=== PATIENT | male | born 1985 | race Caucasian/White ===

== ENCOUNTER 2017-01-22 22:42 | Emergency (ER) | payer OTHER ==
--- NOTE | 2017-01-22 23:49 | DIAGNOSTIC IMAGING REPORT ---
PROCEDURE: XR CHEST 1 VIEW INDICATION: Chest pain, initial encounter TECHNIQUE: Portable AP view 11:29 p.m. COMPARISON: Chest x-ray 11/27/2008 FINDINGS: Lungs are clear. Heart and mediastinum are normal. Thorax is normal. No significant interval change. IMPRESSION: 1. Negative chest.
--- NOTE | 2017-01-23 00:53 | ED ORDER SUMMARY ---
..... Patient: MOISES SALES OrderSheet [facility] VisitID: [id number] [address] [place] [address] 31y, M Registration Date/Time: 01/22/2017 ORDER SHEET Weight: 115.6 kg Allergies: No Known Drug Allergy GENERAL ORDERS: Administrative Office Specialist (Continuous) (CP) (22:53 01/22/2017 Leslie Gill) (Ack 22:55 ALawrence ER Tech1) (23:02 ALawrence ER Tech1) EKG - ER Stat (22:53 01/22/2017 Leslie Gill) (Ack 22:55 ALawrence ER Tech1) (23:02 ALawrence ER Tech1) Pulse oximeter (22:53 01/22/2017 Leslie Gill) (Ack 22:55 ALawrence ER Tech1) (23:02 ALawrence ER Tech1) Chest 1V Urgent (23:07 01/22/2017 Leslie Gill) (Ack 23:12 ALawrence ER Tech1) (23:46 MCampbell) Administrative Office Specialist (Continuous) (CP) (23:07 01/22/2017 Leslie Gill) (Ack 23:08 DDavis R.N.) (23:08 DDavis R.N.) (Cancelled: Duplicate Order23:53 Leslie Gill) CBC w Diff Urgent (23:07 01/22/2017 Leslie Gill) (Ack 23:08 DDavis R.N.) (23:08 DDavis R.N.) CMP Urgent (23:07 01/22/2017 Leslie Gill) (Ack 23:08 DDavis R.N.) (23:08 DDavis R.N.) PT with INR Urgent (23:07 01/22/2017 Leslie Gill) (Ack 23:08 DDavis R.N.) (23:08 DDavis R.N.) Troponin-I Urgent (23:07 01/22/2017 Leslie Gill) (Ack 23:08 DDavis R.N.) (23:08 DDavis R.N.) Pulse oximeter (23:07 01/22/2017 Leslie Gill) (Ack 23:08 DDavis R.N.) (23:08 ETHANavis R.N.) (Cancelled: Duplicate Order23:53 Leslie Gill) Urine Drug Screen Urgent (23:53 01/22/2017 Leslie Gill) (Ack 23:55 ALawrence ER Tech1) (0:16 Lingelli R.N.) MEDICATION ORDERS: IV FLUIDS: IV Saline Lock (23:07 01/22/2017 Leslie Gill) (23:11 Blakes R.N.) ORDER SHEET NOTES: [Electronically signed by Lauri Moss R.N. (01:06 01/23/2017)] [Electronically signed by Uriel Adams Dr. (05:02 01/31/2017)] [Electronically locked/signed by Lauri Moss R.N. (01:06 01/23/2017)]
--- NOTE | 2017-01-23 00:53 | ED CLINICAL REPORT ---
Clinical Report - Physicians/Mid Levels [facility] [address] [place] [address] 01/22/2017 22:45 Patient: MOISES SALES Time Seen: 2253. Arrived- By private vehicle. Historian- patient. HISTORY OF PRESENT ILLNESS Chief Complaint: CHEST PAIN. At its maximum, severity described as severe. When seen in the E.D., it was gone. Modifying factors- (does not know what else makes it worse or better). This started yesterday, is still present but is better now and is now gone. It was abrupt in onset and has been constant. Onset during smoking marijuana. It is described as sharp and it is described as located in the central chest area. No radiation. No nausea, vomiting, difficulty breathing or diaphoresis. (occured while smoking marijuana. lasted 15 minutes then went away. No hemoptysis, trauma, or leg swelling. No hx of DVT or PE.). No additional chest pain. Similar symptoms previously: Several times (while smoking marijuana). Recent medical care: The patient was seen recently by a health care provider. REVIEW OF SYSTEMS No fever, chills or pedal edema. All systems otherwise negative, except as recorded above. PAST HISTORY Denies the following risk factors for DVT/PE - history of DVT and pulmonary embolism, recent surgery, recent MD and congestive heart failure. Denies the following risk factors for DVT/PE - cancer, clotting disorder, estrogens, obesity and immobility. Denies the following risk factors for DVT/PE - advanced in age and vena cava filter. SOCIAL HISTORY Never smoker. History of drug use: marijuana. No alcohol use. No recent travel. Is a local resident. FAMILY HISTORY No history of heart disease. No family history of premature onset heart disease. ADDITIONAL NOTES The nursing notes have been reviewed. PHYSICAL EXAM Vital Signs: 01/22/2017 22:50 BP: 166/102. HR: 110. RR: 16. O2 saturation: 100%. Temp: 99.3 F. Pain level now: 2/10. Blood pressure normal. Oxygen saturation normal. Appearance: Alert. Oriented X3. No acute distress. Eyes: Pupils equal, round and reactive to light. Eyes normal inspection. ENT: Ears normal. Nose normal. Pharynx normal. Neck: Normal inspection. Neck supple. CVS: Normal heart rate and rhythm. Heart sounds normal. Pulses normal. No decreased pulses. Respiratory: No respiratory distress. Breath sounds normal. Chest nontender. Abdomen: Soft and nontender. Bowel sounds normal. No organomegaly. No mass. Femoral pulses equal. Back: Normal external inspection. Skin: Skin warm and dry. Normal skin color. No rash. Normal skin turgor. Extremities: Extremities exhibit normal ROM. No lower extremity edema. Neuro: Oriented X 3. No motor deficit. No sensory deficit. LABS, X-RAYS, AND EKG EKG: Normal sinus rhythm. Normal P waves. Normal MARK. Normal QRS complex. Normal axis. Normal ST and T waves, QT and QTc. The study has been interpreted contemporaneously. The study has been independently viewed by me. The EKG appears to be a good tracing. Chest X-ray: (PROCEDURE: XR CHEST 1 VIEW INDICATION: Chest pain, initial encounter TECHNIQUE: Portable AP view 11:29 p.m. COMPARISON: Chest x-ray 11/27/2008 FINDINGS: Lungs are clear. Heart and mediastinum are normal. Thorax is normal. No significant interval change. IMPRESSION: 1. Negative chest.). Laboratory Tests: CBC w Diff: (JUAN DANIEL: 01/22/2017 22:50) ( MsgRcvd 01/22/2017 23:13) Final results Test Result Flag Units (Reference) WHITE BLOOD COUNT 9.2 K/uL (4.5-11.5) RED BLOOD COUNT 5.15 M/uL (4.50-5.90) HEMOGLOBIN 15.7 gm/dL (13.5-17.5) HEMATOCRIT 46.1 % (41.0-53.0) MEAN CELL VOLUME 90 fL (80-100) MEAN CORPUSCULAR HGB 30 pg (26-34) MEAN CORPUSCULAR HGB CONC 34 g/dL (31-37) RED CELL DISTRIBUTION WIDTH 12.4 % (11.6-14.8) PLATELET COUNT 282 K/uL (150-400) NEUTROPHIL % 41.1 L % (50-75) LYMPH % 48.2 H % (25-40) MONO % 9.5 % (3-14) EOSINOPHIL % 0.9 % (0-4) BASOPHIL % 0.3 % (0-2) PT with INR: (JUAN DANIEL: 01/22/2017 22:50) ( [facility] 01/22/2017 23:26) Final results Test Result Flag Units (Reference) INR 0.9 (0.8-1.2) Low Intensity Therapy: INR 1.5-2.0 PT range 18.5-23.1Mod.Intensity Therapy: INR 2.0-3.0 PT range 23.1-31.5High Intensity Therapy: INR 2.5-3.5 PT range 27.4-35.5High Intensity Therapy 2: INR 3.0-4.0 PT range 31.5-39.3 Urine Drug Screen: (JUAN DANIEL: 01/22/2017 00:05) ( [facility] 01/23/2017 00:40) Final results Test Result Flag Units (Reference) AMPHETAMINE/METHAMPHETAMINE NEGATIVE (NEGATIVE) BARBITURATE NEGATIVE (NEGATIVE) BENZODIAZEPINE NEGATIVE (NEGATIVE) CANNABINOID POSITIVE H (NEGATIVE) COCAINE NEGATIVE (NEGATIVE) ECSTASY NEGATIVE (NEGATIVE) METHADONE NEGATIVE (NEGATIVE) OPIATE NEGATIVE (NEGATIVE) The urine drug screen is a qualitative screening test fordrug overdose and abuse. All screen results should beconsidered as presumptive.Drugs screened for are as follows:BenzodiazepinesCocaineAmphetamines/MetamphetaminesTHC (Tetrahydrocannabinol)OpiatesBarbituratesEcstasyMethadonePositive results are unconfirmed. For confirmation, notifythe lab for the specimen to be sent to the reference lab.All confirmations must be performed by a differentmethodology.The ingestion of natural herbal and plant productscontaining Ephedra/Ephedra metabolites can produce in urineone or more substances capable of cross reacting withamphetamine/methamphetamine immunoassays. These testsprovide a preliminary result only. A more specificalternative chemical method must be used to obtain aconfirmed analytical result. CMP: (JUAN DANIEL: 01/22/2017 22:50) ( [facility] 01/22/2017 23:33) Final results Test Result Flag Units (Reference) GLUCOSE 107 mg/dL (70-110) BUN 23 H mg/dL (7-18) CREATININE 1.0 mg/dL (0.6-1.3) Estimated GFR >60 mL/min Estimated GFR- >60 mL/min Note: Persistent reduction over 3 months in eGFR<60 mL/min/1.73 m2 defines CKD. Patients with eGFR values>=60 mL/min/1.73 m2 may also have CKD if evidence ofpersistent proteinuria. Additional information may be foundat www.kidney.org. SODIUM 141 mmol/L (136-145) POTASSIUM 3.8 mmol/L (3.5-5.1) CHLORIDE 105 mmol/L (98-107) CARBON DIOXIDE 26 mmol/L (21-32) CALCIUM 9.1 mg/dL (8.5-10.1) TOTAL PROTEIN 8.1 g/dL (6.4-8.2) ALBUMIN 4.4 g/dL (3.3-5.0) BILIRUBIN, TOTAL 0.4 mg/dL (0.0-1.0) ALKALINE PHOSPHATASE 94 U/L (46-116) AST (SGOT) 30 U/L (15-37) ALT (SGPT) 65 U/L (12-78) TROPONIN I <0.05 L ng/mL (0.00-1.5) TROPONIN REFERENCE RANGE:<0.1 NEGATIVE0.1-1.5 INDETERMINANT>1.5 POSITIVE . PROGRESS AND PROCEDURES Course of Care: the patient is a pleasant 31-year-old male presenting for evaluation of chest pain. The patient is reporting somewhat atypical symptoms for chest pain. Patient does not have any significant risk factors for pulmonary embolism. Patient is a low risk on the well's criteria. Do not feel further workup for pulmonary embolism is warranted at this time. Patient will be provided for the chest pain in regards to acute myocardial infarction. Patient be evaluated with chest x-ray EKG and laboratory studies. Because of time course of chest pain, troponin 1 will be ordered. Do not feel delta troponin is needed at this time given patient's time course. Patient is resting in bed and in no acute distress. Patient is agreeable to treatment and plan. Patient's workup is noted to be negative. Chest x-ray, EKG, laboratory studies are unremarkable. No evidence of acute myocardial infarction at this time. Symptoms are alsoatypical and not consistent with acute myocardial infarction or coronary artery disease. Did have discussion patient in regards to chest pain and other potential causes for it. Also instructed patient to follow up with his doctor in regards to continued pain and further management of his symptoms. Did not fill patient is being admitted to the hospital or require further emergency department workup/evaluation. Also discussed the patient recreational drug use and abstaining from substances that could potentially be harmful. Patient is agreeable to the treatment and plan. Discussed the patient is workup, diagnosis, home care, follow-up, and return precautions. All questions have been answered. The patient expressed understanding of these instructions and was agreeable to them. Disposition: Discharged. Condition: good. CLINICAL IMPRESSION 01/22/2017 23:03 BP: 164/83. HR: 94. RR: 16. O2 saturation: 98%. 01/22/2017 22:50 BP: 166/102. HR: 110. RR: 16. O2 saturation: 100%. Temp: 99.3 F. Pain level now: 2/10. Hypertensive. Oxygen saturation normal. Atypical chest pain (acute substernal). INSTRUCTIONS Warnings: GENERAL WARNINGS: Return or contact your physician immediately if your condition worsens or changes unexpectedly, if not improving as expected, or if other problems arise. SPECIFICALLY, return if you develop chest, neck, jaw, shoulder, arm, or back pain, difficulty breathing, a fluttering sensation in your chest, lightheadedness, fainting, excessive fatigue, or sudden sweating. Your Current Medications: CONTINUE TAKING THE FOLLOWING MEDICATIONS: Suboxone Sublingual : Film 8-2 mg, daily. Follow-up: Return to the emergency department as needed. Follow up with your doctor in three days. Reason for referral: recheck today's concerns. Summary of care provided to patient via paper. Screening today revealed the patient's blood pressure to be in the normal range. The patient should follow up with a primary care provider for blood pressure management. Understanding of the discharge instructions verbalized by patient. (Electronically signed by Uriel Adams Dr. 01/31/2017 5:02)
--- NOTE | 2017-01-23 00:53 | ED ORDER SUMMARY ---
..... Patient: MOISES SALES OrderSheet [facility] VisitID: [id number] [address] [place] [address] 31y, M Registration Date/Time: 01/22/2017 ORDER SHEET Weight: 115.6 kg Allergies: No Known Drug Allergy GENERAL ORDERS: Agronomy Location Manager (Continuous) (CP) (22:53 01/22/2017 Leslie Gill) (Ack 22:55 ALawrence ER Tech1) (23:02 ALawrence ER Tech1) EKG - ER Stat (22:53 01/22/2017 Leslie Gill) (Ack 22:55 ALawrence ER Tech1) (23:02 ALawrence ER Tech1) Pulse oximeter (22:53 01/22/2017 Leslie Gill) (Ack 22:55 ALawrence ER Tech1) (23:02 ALawrence ER Tech1) Chest 1V Urgent (23:07 01/22/2017 Leslie Gill) (Ack 23:12 ALawrence ER Tech1) (23:46 MCampbell) Agronomy Location Manager (Continuous) (CP) (23:07 01/22/2017 Leslie Gill) (Ack 23:08 DDavis R.N.) (23:08 DDavis R.N.) (Cancelled: Duplicate Order23:53 Leslie Gill) CBC w Diff Urgent (23:07 01/22/2017 Leslie Gill) (Ack 23:08 DDavis R.N.) (23:08 DDavis R.N.) CMP Urgent (23:07 01/22/2017 Leslie Gill) (Ack 23:08 DDavis R.N.) (23:08 DDavis R.N.) PT with INR Urgent (23:07 01/22/2017 Leslie Gill) (Ack 23:08 DDavis R.N.) (23:08 DDavis R.N.) Troponin-I Urgent (23:07 01/22/2017 Leslie Gill) (Ack 23:08 DDavis R.N.) (23:08 DDavis R.N.) Pulse oximeter (23:07 01/22/2017 Leslie Gill) (Ack 23:08 DDavis R.N.) (23:08 ETHANavis R.N.) (Cancelled: Duplicate Order23:53 Leslie Gill) Urine Drug Screen Urgent (23:53 01/22/2017 Leslie Gill) (Ack 23:55 ALawrence ER Tech1) (0:16 Lingelli R.N.) MEDICATION ORDERS: IV FLUIDS: IV Saline Lock (23:07 01/22/2017 Leslie Gill) (23:11 Blakes R.N.) ORDER SHEET NOTES: [Electronically signed by Lauri Moss R.N. (01:06 01/23/2017)] [Electronically signed by Uriel Adams Dr. (05:02 01/31/2017)] [Electronically locked/signed by Lauri Moss R.N. (01:06 01/23/2017)]
--- NOTE | 2017-01-23 00:53 | ED NURSING NOTES ---
Clinical Report - Nurses [facility] [address] [place] [address] 01/22/2017 22:45 [id number] Triage time 22:53 Jan 22 2017. Acuity: LEVEL 3. Chief Complaint: CHEST PAIN. Alert. CHANA COMA SCORE: [place] Coma Scale: 15- eyes open spontaneously (4); best verbal response- oriented x 4 (5); best motor response- obeys commands (6). --23:09 Jhon Michelle R.N. 22:50 01/22/17. BP: 166/102. HR: 110. RR: 16. O2 saturation: 100% on room air. Temp: 99.3 F. Pain level now: 12/19. --23:09 Jhon Michelle R.N. Weight: 115.6 kg. Height/Length: 72 inches Per Patient. BMI: 34.6. --22:52 Jhon Michelle R.N. Medications Suboxone Sublingual (Film 8-2 mg), daily. --22:52 Jhon Michelle R.N. The following entry was struck and corrected by Jhon Michelle R.N., 22:53 (01/22/17) Reason for correction - other(correction). <<STRICKEN ENTRY-- Suboxone Sublingual. --22:52 Jhon Michelle R.N. --END STRIKE>>. Medication/allergy information source: the patient. --23:09 Jhon Michelle R.N. Allergies No Known Drug Allergy. --22:52 Jhon Michelle R.N. History Historian: patient. Primary physician (none). ( Chest Pain located upper sternum mostly on the (L). He states that this pain has bothered him for the last 2 months, got worse last night and he decided to come to the Hospital and have it checked out tonight.). This started just prior to arrival. Onset. (about 2 months ago). He has had difficulty breathing (intermittently). He has had nausea. Treatment STONE CUTTER: None. PAST MEDICAL HX: Hypertension. SOCIAL HX: Former smoker, end date 2009. History of occasional drug use: marijuana. No alcohol use. No infectious disease exposure. ABUSE ASSESSMENT: No report of abuse. FALL RISK ASSESSMENT: Fall risk assessment completed. No fall risk identified. NUTRITIONAL RISK ASSESSMENT: The nutritional risk assessment revealed no deficiencies. FUNCTIONAL ASSESSMENT: Functional assessment: no impairments noted. LEARNING NEEDS ASSESSMENT: The learning needs assessment revealed no barriers. SKIN INTEGRITY ASSESSMENT: Skin integrity risk assessment completed. No skin integrity risk identified. --23:09 Jhon Michelle R.N. ADDITIONAL SURGERIES: Sleep Apnea recostruction. --23:01 Jhon Michelle R.N. Interventions ID band on patient. To treatment room. --23:09 Jhon Michelle R.N. PHYSICAL ASSESSMENT Ambulatory to room. GENERAL / NEURO / PSYCH: Alert. Oriented X 4. HEENT: Mucous membranes are pink. RESPIRATORY: Respirations not labored. Breath sounds within normal limits. CVS: Normal sinus rhythm noted. Cardiac rhythm: normal sinus rhythm. Heart sounds within normal limits. Capillary refill less than 2 seconds. GI / : Abdomen soft. EXTREMITIES: No lower extremity edema. SKIN: Skin is warm and dry. Normal skin turgor. --23:09 Jhon Michelle R.N. ( pt states having intermittent chest pain for "2 months." He states having smoked "pot" last night, and that the chest pain occurred after that.). RESPIRATORY: Respirations not labored. Breath sounds within normal limits. --23:13 Lauri Moss R.N. ( patient on monitor--NSR). CVS: Normal sinus rhythm noted. --23:14 Lauri Moss R.N. NURSING PROGRESS NOTES 23:03 01/22/17. BP: 164/83. HR: 94. RR: 16. O2 saturation: 98%. --23:04 Jhon Michelle R.N. compliance monitor and pulse oximeter placed on patient; surveillance system monitor- Lead II and V1; monitor alarms on. Patient gowned. Patient identifiers checked. Call light placed in reach. Side rails up. Bed placed in lowest position. Brakes of bed on. Patient ready for evaluation- chart flagged and ED physician notified. --23:04 Jhon Michelle R.N. 23:01 01/22/2017 Site #1 started via IV in the left antecubital space with an 20g angiocath; two attempts. Blood drawn: rainbow set. Labeled in the presence of the patient and sent to the lab. Saline lock flushed with saline. --23:11 Lauri Moss R.N. ( Portable x ray in room.). --23:43 Jayro Alejandra R.N. DISPOSITION / DISCHARGE Cardiac rhythm: normal sinus rhythm. Condition at departure: stable. Learning barriers present. Discharge instructions provided and reviewed with the patient and spouse. Reviewed warnings. Treatments reviewed. Reviewed referrals for followup. Patient verbalized understanding. Written instructions provided in Slovenian. The patient was discharged home and accompanied by assistant plant manager. He left the Emergency Department ambulatory and via private vehicle. Internal Control Consultant driving. FALL RISK ASSESSMENT: Fall risk assessment completed. No fall risk identified. --01:03 Lauri Moss R.N. 01:01 01/23/17. BP: 128/71. HR: 77 (regular and normal rate). RR: 23 (regular and unlabored). O2 saturation: 95% on room air. Winters-Arzate pain scale: 0/10. --01:03 Lauri Moss R.N. 01:00 01/23/2017 Site #1 removed upon discharge. Manual pressure and bandaid applied. --01:05 Lauri Moss R.N. Locked/Released at 01/23/2017 1:06 by Lauri Moss R.N.
--- NOTE | 2017-01-23 00:53 | ED NURSING NOTES ---
Clinical Report - Nurses [facility] [address] [place] [address] 01/22/2017 22:45 [facility]ISES SALES [id number] TRI[facility] Triage time 22:53 Jan 22 2017. Acuity: LEVEL 3. Chief Complaint: CHEST PAIN. Alert. CHANA COMA SCORE: [place] Coma Scale: 15- eyes open spontaneously (4); best verbal response- oriented x 4 (5); best motor response- obeys commands (6). --23:09 Jhon Michelle R.N. 22:50 01/22/17. BP: 166/102. HR: 110. RR: 16. O2 saturation: 100% on room air. Temp: 99.3 F. Pain level now: 12/19. --23:09 Jhon Michelle R.N. Weight: 115.6 kg. Height/Length: 72 inches Per Patient. BMI: 34.6. --22:52 Jhon Michelle R.N. Medications Suboxone Sublingual (Film 8-2 mg), daily. --22:52 Jhon Michelle R.N. The following entry was struck and corrected by Jhon Michelle R.N., 22:53 (01/22/17) Reason for correction - other(correction). <<STRICKEN ENTRY-- Suboxone Sublingual. --22:52 Jhon Michelle R.N. --END STRIKE>>. Medication/allergy information source: the patient. --23:09 Jhon Michelle R.N. Allergies No Known Drug Allergy. --22:52 Jhon Michelle R.N. History Historian: patient. Primary physician (none). ( Chest Pain located upper sternum mostly on the (L). He states that this pain has bothered him for the last 2 months, got worse last night and he decided to come to the Hospital and have it checked out tonight.). This started just prior to arrival. Onset. (about 2 months ago). He has had difficulty breathing (intermittently). He has had nausea. Treatment FACILITY MAINTENANCE MANAGER: None. PAST MEDICAL HX: Hypertension. SOCIAL HX: Former smoker, end date 2009. History of occasional drug use: marijuana. No alcohol use. No infectious disease exposure. ABUSE ASSESSMENT: No report of abuse. FALL RISK ASSESSMENT: Fall risk assessment completed. No fall risk identified. NUTRITIONAL RISK ASSESSMENT: The nutritional risk assessment revealed no deficiencies. FUNCTIONAL ASSESSMENT: Functional assessment: no impairments noted. LEARNING NEEDS ASSESSMENT: The learning needs assessment revealed no barriers. SKIN INTEGRITY ASSESSMENT: Skin integrity risk assessment completed. No skin integrity risk identified. --23:09 Jhon Michelle R.N. ADDITIONAL SURGERIES: Sleep Apnea recostruction. --23:01 Jhon Michelle R.N. Interventions ID band on patient. To treatment room. --23:09 Jhon Michelle R.N. PHYSICAL ASSESSMENT Ambulatory to room. GENERAL / NEURO / PSYCH: Alert. Oriented X 4. HEENT: Mucous membranes are pink. RESPIRATORY: Respirations not labored. Breath sounds within normal limits. CVS: Normal sinus rhythm noted. Cardiac rhythm: normal sinus rhythm. Heart sounds within normal limits. Capillary refill less than 2 seconds. GI / : Abdomen soft. EXTREMITIES: No lower extremity edema. SKIN: Skin is warm and dry. Normal skin turgor. --23:09 Jhon Michelle R.N. ( pt states having intermittent chest pain for "2 months." He states having smoked "pot" last night, and that the chest pain occurred after that.). RESPIRATORY: Respirations not labored. Breath sounds within normal limits. --23:13 Lauri Moss R.N. ( patient on monitor--NSR). CVS: Normal sinus rhythm noted. --23:14 Lauri Moss R.N. NURSING PROGRESS NOTES 23:03 01/22/17. BP: 164/83. HR: 94. RR: 16. O2 saturation: 98%. --23:04 Jhon Michelle R.N. door captain and pulse oximeter placed on patient; supervisor cutting department- Lead II and V1; monitor alarms on. Patient gowned. Patient identifiers checked. Call light placed in reach. Side rails up. Bed placed in lowest position. Brakes of bed on. Patient ready for evaluation- chart flagged and ED physician notified. --23:04 Jhon Michelle R.N. 23:01 01/22/2017 Site #1 started via IV in the left antecubital space with an 20g angiocath; two attempts. Blood drawn: rainbow set. Labeled in the presence of the patient and sent to the lab. Saline lock flushed with saline. --23:11 Lauri Moss R.N. ( Portable x ray in room.). --23:43 Jayro Alejandra R.N. DISPOSITION / DISCHARGE Cardiac rhythm: normal sinus rhythm. Condition at departure: stable. Learning barriers present. Discharge instructions provided and reviewed with the patient and spouse. Reviewed warnings. Treatments reviewed. Reviewed referrals for followup. Patient verbalized understanding. Written instructions provided in Telugu. The patient was discharged home and accompanied by vehicle assembly inspector. He left the Emergency Department ambulatory and via private vehicle. Mailroom Courier driving. FALL RISK ASSESSMENT: Fall risk assessment completed. No fall risk identified. --01:03 Lauri Moss R.N. 01:01 01/23/17. BP: 128/71. HR: 77 (regular and normal rate). RR: 23 (regular and unlabored). O2 saturation: 95% on room air. Winters-Arzate pain scale: 0/10. --01:03 Lauri Moss R.N. 01:00 01/23/2017 Site #1 removed upon discharge. Manual pressure and bandaid applied. --01:05 Lauri Moss R.N. Locked/Released at 01/23/2017 1:06 by Lauri Moss R.N.
--- NOTE | 2017-01-31 05:02 | ED MAR SUMMARY ---
..... Medication Administration Record [facility] [address] [place], [place] [id number] Patient: MOISES SALES Visit ID: [id number] 31y, M Weight: 115.6 kg Height/Length: 72 in BMI: 34.6 ALLERGIES: No Known Drug Allergy
--- NOTE | 2017-01-31 05:02 | ED MED RECONCILIATION SUMMARY ---
Patient: MOISES SALES Medication Reconciliation Report [facility] VisitID: [id number] [address] [place] [address] 31y, M Registration Date/Time: 01/22/2017 Weight: 115.6 kg Height/Length: 72 in. BMI: 34.6 ALLERGIES: No Known Drug Allergy The patient's Home Medications are listed below: CONTINUE TAKING THE FOLLOWING MEDICATIONS: Suboxone Sublingual (8-2 mg), daily The source(s) of the original Home Medication information: patient The following Medications were given to the patient in the Emergency Department: None. The following Medications were prescribed to the patient: None.
--- NOTE | 2017-01-31 05:02 | ED MED RECONCILIATION SUMMARY ---
Patient: MOISES SALES Medication Reconciliation Report [facility] VisitID: [id number] [address] [place] [address] 31y, M Registration Date/Time: 01/22/2017 Weight: 115.6 kg Height/Length: 72 in. BMI: 34.6 ALLERGIES: No Known Drug Allergy The patient's Home Medications are listed below: CONTINUE TAKING THE FOLLOWING MEDICATIONS: Suboxone Sublingual (8-2 mg), daily The source(s) of the original Home Medication information: patient The following Medications were given to the patient in the Emergency Department: None. The following Medications were prescribed to the patient: None.
--- NOTE | 2017-01-31 05:02 | ED MAR SUMMARY ---
..... Medication Administration Record [facility] [address] [place], [place] [id number] Patient: MOISES SALES Visit ID: [id number] 31y, M Weight: 115.6 kg Height/Length: 72 in BMI: 34.6 ALLERGIES: No Known Drug Allergy
--- NOTE | 2017-01-31 05:02 | ED DISCHARGE INSTRUCTIONS ---
Patient: MOISES SALES General Instructions [facility] VisitID: [id number] [address] [place] [address] 31y, M Registration Date/Time: 01/22/2017 01/22/2017 23:03 BP: 164/83. HR: 94. RR: 16. O2 saturation: 98%. 01/22/2017 22:50 BP: 166/102. HR: 110. RR: 16. O2 saturation: 100%. Temp: 99.3 F. Pain level now: 12/19. Hypertensive. Oxygen saturation normal. Atypical chest pain (acute substernal). INSTRUCTIONS Warnings: GENERAL WARNINGS: Return or contact your physician immediately if your condition worsens or changes unexpectedly, if not improving as expected, or if other problems arise. SPECIFICALLY, return if you develop chest, neck, jaw, shoulder, arm, or back pain, difficulty breathing, a fluttering sensation in your chest, lightheadedness, fainting, excessive fatigue, or sudden sweating. Your Current Medications: CONTINUE TAKING THE FOLLOWING MEDICATIONS: Suboxone Sublingual : Film 8-2 mg, daily. Follow-up: Return to the emergency department as needed. Follow up with your doctor in three days. Reason for referral: recheck today's concerns. Summary of care provided to patient via paper. Screening today revealed the patient's blood pressure to be in the normal range. The patient should follow up with a primary care provider for blood pressure management. Understanding of the discharge instructions verbalized by patient. ADDITIONAL INFORMATION Chest Pain, Uncertain Cause Chest pain can happen for a number of reasons. Sometimes the cause can not be determined. If yourcondition does not seem serious, and your pain does not appear to be coming from your heart, your doctor may recommend watching it closely. Sometimes the signs of a serious problem take more time to appear. Therefore, watch for the warning signs listed below. Home care After your visit, follow these recommendations: Rest today and avoid strenuous activity. Take any prescribed medicine as directed. Follow-up care Follow up with your doctor or this facility as instructed or if you do not start to feel better within 24 hours. Call 911 Get immediate medical attention if any of the following occur: A change in the type of pain: if it feels different, becomes more severe, lasts longer, or begins to spread into your shoulder, arm, neck, jaw or back Shortness of breath or increased pain with breathing Weakness, dizziness, or fainting Rapid heart beat Get prompt medical attention Call your doctor right away if any of the following occur: Cough with dark colored sputum (phlegm) or blood Fever of 100.4F(38C) or higher, or as directed by your health care provider Swelling, pain or redness in one leg You have been given the following additional information: Chest Pain, Uncertain Cause (Electronically signed by Uriel Adams Dr. 01/31/2017 5:02)
== END 2017-01-23 01:05 | disposition home or self-care (01) ==
LOC: ED SRH 22:42
DX: R07.89 Other chest pain (principal)
CPT/HCPCS: 90100; 90616; 92760; 92761; 92762; 92763; 92764; 92765; 92766; 92767; 94060; 95059